=== PATIENT | male | born 1965 | race Caucasian/White ===

== ENCOUNTER → 2017-05-24 | Day surgery (SDC) | payer BC ==
[~2017-05-24] MED LIST: LISINOPRIL20 MG PO; METOPROLOL TAR25 MG DOB
--- NOTE | ~2017-05-24 | OR ---
Unit #: [id number] #: [id number] Patient: IAIN HARRIS [id number] [address] [place], [place] [address] [id number] O MR#: [id number] NAME: IAIN HARRIS ROOM: Date of Procedure: 05/24/2017 Admission Date: 05/24/2017 Surgeon: Wilber Grant M.D. : 1965 Attending Physician: Wilber Grant M.D. Primary Care Physician: Terrie Damian M.D. OPERATIVE REPORT PREOPERATIVE DIAGNOSIS Colorectal cancer screening in an average-risk patient. PROCEDURES PERFORMED Colonoscopy and polypectomy. POSTOPERATIVE DIAGNOSES 1. The patient had a single sessile polyp in the mid ascending colon. The latter was about a centimeter in size. It was removed using snare polypectomy. 2. Small internal hemorrhoids. 3. Rest of the examination up to cecum and terminal ileum was normal. The quality of the prep was excellent. RECOMMENDATIONS 1. Follow up the results of polyp histology. 2. Consider repeat colonoscopy in 5 years. SEDATION USED MAC. DESCRIPTION OF PROCEDURE Following detailed explanation of potential risks and complications of a colonoscopy, namely perforation, bleeding, and complications related to sedation, the patient was brought to GI lab and laid in the left lateral decubitus position. A digital rectal examination was performed, which was normal. Lubricated tip of the Olympus video colonoscope was inserted through the anus and advanced under direct vision. The scope was advanced past rectosigmoid into descending colon. No diverticula were noted in this area. The scope tip was then navigated all the way up to cecum with visualization of the ileocecal valve and the appendiceal orifice. Preparation was excellent with good visualization and photodocumentation was obtained. Last several inches of the terminal ileum were also visualized after intubation of the ileocecal valve and appeared normal. Successive segments of the colonic mucosa were examined upon withdrawal. A single sessile polyp was noted in the mid ascending colon. This was about a centimeter in size. It was removed using snare polypectomy. The polyp was retrieved and sent for histology. Excellent hemostasis was achieved and photodocumentation was obtained. No additional polyps were noted. The patient did not have any diverticulosis, but did have small internal hemorrhoids at the anal verge. These were seen on retroflexion. The scope was then withdrawn and the patient returned to the recovery Unit #: [id number] #: [id number] Patient: IAIN HARRIS [facility]. He tolerated the procedure without any postprocedure complications. Dictated by... Frank Palma/umesh TD: 05/24/2017 13:42 JOB #: [id number] CC: Terrie Damian M.D. OPERATIVE REPORT Page 1 of 1 X Wilber Grant MD X PROCEDURE OPERATIVE NOTE
== END | disposition home or self-care (01) ==
LOC: COPS 06:25
DX: Z12.11 Encounter for screening for malignant neoplasm of colon (principal); D12.2 Benign neoplasm of ascending colon; K64.8 Other hemorrhoids; I10 Essential (primary) hypertension; Z79.899 Other long term (current) drug therapy
CPT/HCPCS: 88305; J2250